=== PATIENT | female | born 1965 | race Caucasian/White ===

== ENCOUNTER 2016-11-28 14:17 | Emergency (ER) | payer MEDICAID ==
[~2016-11-28] VITALS: Ht 160 cm; Wt 60.0 kg
[~2016-11-28 14:17] MED LIST: OXCA600T5 PO
[2016-11-28 15:25] LABS: BASOPHILS % 0.4 % (0.0-2.0); EOSINOPHILS % 1.3 % (0.0-5.0); HEMATOCRIT. 32.5 % (36.0-48.0); HEMOGLOBIN. 10.8 g/dL (12.0-16.0); LYMPHOCYTES % 27.7 % (20.0-50.0); MEAN PLATELET VOLUME 8.6 fl (7.4-10.4); MONOCYTES % 7.2 % (2.0-8.0); NEUTROPHILS % 63.4 % (40.0-76.0); PLATELET 322 x1000/uL (130-400); RED BLOOD CELL COUNT 3.49 mill/uL (4.2-5.4); RED CELL DISTRIBUTION WIDTH 16.9 % (11.6-14.6)
[2016-11-28 15:29] LABS: CHLORIDE 106 mEq/L (98-107)
[2016-11-28 15:33] LABS: CARBON DIOXIDE 27 mEq/L (21-32)
[2016-11-28 16:17] LABS: *AMPHETAMINES SCREEN URINE NEGATIVE (NEGATIVE); *BARBITURATES SCREEN URINE NEGATIVE (NEGATIVE); *BENZODIAZEPINES SCREEN URINE NEGATIVE (NEGATIVE); *COCAINE SCREEN URINE NEGATIVE (NEGATIVE); METHADONE URINE SCREEN NEGATIVE (NEGATIVE); OPIATES URINE SCREEN NEGATIVE (NEGATIVE); PHENCYCLIDINE URINE SCREEN NEGATIVE (NEGATIVE)
[2016-11-28 16:20] LABS: CANNABINOID URINE SCREEN PRESUMTIVE POSITIVE (NEGATIVE)
[2016-11-28] MEDS ORDERED: LEVETIRACETAM 250MG TABLET PO ONE (16:45)
[2016-11-28] MEDS ORDERED: LORAZEPAM 2MG/ML CPJ ONE (16:56)
[2016-11-28] MEDS ORDERED: POTASSIUM CHLORIDE 20MEQ TABLET SR PO ONE ×2 (16:57)
[2016-11-28] MEDS ORDERED: LEVETIRACETAM 500MG PREMIX 100 ML IV ONE ×2 (17:00)
[2016-11-28 17:08] VITALS: BP 136/73
[2016-11-28] MEDS ORDERED: LORAZEPAM 2MG/ML CPJ IV ONE (17:15)
== END 2016-11-28 18:55 | disposition home or self-care (01) ==
LOC: ER 14:27
DX: G40.909 Epilepsy, unspecified, not intractable, without status epilepticus (principal); F32.9 Major depressive disorder, single episode, unspecified; I10 Essential (primary) hypertension; I25.2 Old myocardial infarction; F12.10 Cannabis abuse, uncomplicated; Z86.73 Personal history of transient ischemic attack (TIA), and cerebral infarction without residual deficits
CPT/HCPCS: 36415; 80053; 80305; 85025; 96365; 96375; 99284; J1953; J2060; Z7610

== ENCOUNTER 2017-02-27 08:05 | Emergency (ER) | payer MEDICAID ==
[~2017-02-27] VITALS: Ht 154.9 cm; Wt 74.0 kg
[2017-02-27] MEDS ORDERED: KETOROLAC 30MG/ML VIAL IM ONE (11:00)
[2017-02-27 12:18] VITALS: BP 130/74
== END 2017-02-27 12:20 | disposition home or self-care (01) ==
LOC: ER 08:05
DX: B02.9 Zoster without complications (principal); I10 Essential (primary) hypertension; G40.909 Epilepsy, unspecified, not intractable, without status epilepticus; Z86.73 Personal history of transient ischemic attack (TIA), and cerebral infarction without residual deficits; I25.2 Old myocardial infarction; Z86.59 Personal history of other mental and behavioral disorders
CPT/HCPCS: 96372; 99283; J1885; Z7610

== ENCOUNTER 2021-01-07 09:45 | Emergency (ER) | payer MEDICAID ==
[~2021-01-07] VITALS: Ht 154.9 cm; Wt 74.7 kg
[~2021-01-07 09:45] MED LIST changes: +DICL50TA9 MT
[2021-01-07] MEDS ORDERED: IBUPROFEN 800MG TABLET PO ONE (10:30)
[2021-01-07 10:44] VITALS: BP 173/109
[2021-01-07] MEDS ORDERED: IBUP-2029 MT (11:06)
[2021-01-07] MEDS ORDERED: OFLO5DRO4 EACH EAR (11:06)
== END 2021-01-07 11:24 | disposition home or self-care (01) ==
LOC: ER 09:45
DX: H60.93 Unspecified otitis externa, bilateral (principal); H61.23 Impacted cerumen, bilateral; G40.909 Epilepsy, unspecified, not intractable, without status epilepticus; I10 Essential (primary) hypertension; F12.90 Cannabis use, unspecified, uncomplicated; Z86.73 Personal history of transient ischemic attack (TIA), and cerebral infarction without residual deficits; Z79.899 Other long term (current) drug therapy
CPT/HCPCS: 99283

== ENCOUNTER 2021-04-10 13:05 | Emergency (ER) | payer MEDICAID ==
[~2021-04-10] VITALS: Ht 160 cm; Wt 77.5 kg
[~2021-04-10 13:05] MED LIST changes: +IBUP-2029 MT; +OFLO5DRO4 EACH EAR
[2021-04-10] MEDS ORDERED: MECLIZINE 25MG TABLET PO ONE (13:30)
[2021-04-10] MEDS ORDERED: SODIUM CHLORIDE 0.9% 1,000 ML IV ONE (13:30)
[2021-04-10 14:00] LABS: HEMATOCRIT. 37.4 % (36.0-48.0); HEMOGLOBIN. 12.8 g/dL (12.0-16.0); MEAN CORPUSCULAR HEMOGLOBIN 32.6 pg (28.0-32.0); RED BLOOD CELL COUNT 3.93 mill/uL (4.2-5.4); RED CELL DISTRIBUTION WIDTH 13.9 % (11.6-14.6)
[2021-04-10 14:01] LABS: BASOPHILS % 0.3 % (0.0-2.0); EOSINOPHILS % 1.5 % (0.0-5.0); LYMPHOCYTES % 35.8 % (20.0-50.0); MEAN PLATELET VOLUME 8.9 fl (7.4-10.4); NEUTROPHILS % 56.4 % (40.0-76.0); PLATELET 285 x1000/uL (130-400)
[2021-04-10 14:09] LABS: CHLORIDE 106 mEq/L (98-107)
[2021-04-10 14:13] LABS: ETHANOL BLOOD < 10 mg/dL
[2021-04-10] MEDS ORDERED: POTASSIUM CHLORIDE 20MEQ TABLET SR PO STA (14:19)
[2021-04-10 17:27] LABS: CLARITY URINE CLOUDY (CLEAR); COLOR URINE YELLOW (YELLOW); KETONES URINE NEGATIVE (NEGATIVE); LEUKOCYTE ESTERASE URINE 1+ (NEGATIVE); NITRITE URINE NEGATIVE (NEGATIVE); OCCULT BLOOD URINE NEGATIVE (NEGATIVE); PH URINE 5.5 (4.5-8.0); PROTEIN URINE NEGATIVE (NEGATIVE); SPECIFIC GRAVITY URINE 1.027 (1.005-1.030); UROBILINOGEN URINE 0.2 E.U./dL (0.2-1.0)
[2021-04-10 17:39] LABS: *AMPHETAMINES SCREEN URINE NEGATIVE (NEGATIVE); *BARBITURATES SCREEN URINE NEGATIVE (NEGATIVE); *BENZODIAZEPINES SCREEN URINE NEGATIVE (NEGATIVE)
[2021-04-10 17:40] LABS: *COCAINE SCREEN URINE NEGATIVE (NEGATIVE); CANNABINOID URINE SCREEN PRESUMTIVE POSITIVE (NEGATIVE); METHADONE URINE SCREEN NEGATIVE (NEGATIVE); OPIATES URINE SCREEN NEGATIVE (NEGATIVE); PHENCYCLIDINE URINE SCREEN NEGATIVE (NEGATIVE)
[2021-04-10 17:46] VITALS: BP 143/85
== END 2021-04-10 17:57 | disposition left against medical advice (07) ==
LOC: ER 13:16
DX: R42 Dizziness and giddiness (principal); F12.10 Cannabis abuse, uncomplicated; I10 Essential (primary) hypertension; Z86.59 Personal history of other mental and behavioral disorders; Z90.49 Acquired absence of other specified parts of digestive tract; Z98.51 Tubal ligation status
CPT/HCPCS: 36415; 70450; 80053; 80305; 80307; 80320; 80329; 81003; 84484; 85025; 96360; 99285; J7030; J8597; G0480

== ENCOUNTER 2021-12-30 09:48 | Emergency (ER) | payer MEDICAID ==
[~2021-12-30] VITALS: Ht 165.1 cm; Wt 82.0 kg
[2021-12-30] MEDS ORDERED: BACLOFEN 10MG TABLET PO ONE (10:30)
[2021-12-30] MEDS ORDERED: ACETAMINOPHEN 325MG TABLET PO ONE (10:30)
[2021-12-30] MEDS: LIDOCAINE 5% PATCH TOP SCH ×2 (10:37→10:38)
[2021-12-30] MEDS ORDERED: LIDO700A15 TP (12:34)
[2021-12-30] MEDS ORDERED: ACET-2708 MT (12:34)
[2021-12-30] MEDS ORDERED: BACL-141 MT (12:34)
[2021-12-30 13:07] VITALS: BP 135/87
== END 2021-12-30 13:08 | disposition home or self-care (01) ==
LOC: ER 09:59
DX: M54.59 Other low back pain (principal); R07.81 Pleurodynia; M48.07 Spinal stenosis, lumbosacral region; M47.817 Spondylosis without myelopathy or radiculopathy, lumbosacral region; M43.17 Spondylolisthesis, lumbosacral region; G40.909 Epilepsy, unspecified, not intractable, without status epilepticus; Z91.81 History of falling
CPT/HCPCS: 71250; 72131; 99284

== ENCOUNTER 2022-06-08 15:56 | Emergency (ER) | payer MEDICAID ==
[~2022-06-08] VITALS: Ht 165.1 cm; Wt 68.0 kg
[~2022-06-08 15:56] MED LIST changes: +ACET-2708 MT; +BACL-141 MT; +LIDO700A15 TP
[2022-06-08 16:42] LABS: BASOPHILS % 0.2 % (0.0-2.0); EOSINOPHILS % 0.3 % (0.0-5.0); HEMATOCRIT. 41.2 % (36.0-48.0); LYMPHOCYTES % 19.4 % (20.0-50.0); MEAN CORPUSCULAR HEMOGLOBIN 32.6 pg (28.0-32.0); MEAN CORPUSCULAR VOLUME 95.7 fL (81.0-99.0); MEAN PLATELET VOLUME 8.8 fl (7.4-10.4); MONOCYTES % 4.2 % (2.0-8.0); NEUTROPHILS % 75.9 % (40.0-76.0); PLATELET 305 x1000/uL (130-400); RED BLOOD CELL COUNT 4.31 mill/uL (4.2-5.4); RED CELL DISTRIBUTION WIDTH 14.2 % (11.6-14.6)
[2022-06-08 16:49] LABS: CHLORIDE 107 mEq/L (98-107)
[2022-06-08] MEDS ORDERED: PHENYTOIN SODIUM 100MG/2ML VIAL IV ONE (17:15)
[2022-06-08] MEDS ORDERED: LEVETIRACETAM 1000MG PREMIX 100 ML IV ONE (17:30)
[2022-06-08 19:00] VITALS: BP 152/80
== END 2022-06-08 19:04 | disposition home or self-care (01) ==
LOC: ER 15:56
DX: R56.9 Unspecified convulsions (principal); I10 Essential (primary) hypertension; Z90.49 Acquired absence of other specified parts of digestive tract
CPT/HCPCS: 36415; 80053; 80185; 85025; 96365; 99291; J1953; J1165

== ENCOUNTER 2022-12-16 08:00 | Emergency (ER) | payer MEDICAID ==
[~2022-12-16] VITALS: Ht 154.9 cm; Wt 74.0 kg
[2022-12-16 08:08] VITALS: BP 147/94; TEMP 98.3; O2SAT 99
[2022-12-16 08:10] VITALS: PULSE 77; RESP 18
== END 2022-12-16 10:44 | disposition home or self-care (01) ==
LOC: ER 08:00
DX: H61.23 Impacted cerumen, bilateral (principal); J45.909 Unspecified asthma, uncomplicated; I10 Essential (primary) hypertension; Z86.59 Personal history of other mental and behavioral disorders
CPT/HCPCS: 69210; 99282

== ENCOUNTER 2024-01-01 07:39 | Emergency (ER) | payer MEDICAID, OTHER ==
[~2024-01-01] VITALS: Ht 154.9 cm; Wt 73.0 kg
[2024-01-01 07:42] VITALS: O2SAT 99
[2024-01-01] MEDS: DIAZEPAM 5 MG TABLET PO ONE (08:33)
[2024-01-01] MEDS ORDERED: DIAZ5TAB MT (09:59)
[2024-01-01] MEDS ORDERED: CELE100C MT (09:59)
[2024-01-01 10:22] VITALS: BP 150/83; PULSE 65; RESP 16; TEMP 98.2
[2024-01-01] MEDS: KETOROLAC 30MG/ML VIAL IM ONE (10:22)
== END 2024-01-01 10:49 | disposition home or self-care (01) ==
LOC: ER 07:54
DX: R52 Pain, unspecified (principal); J45.909 Unspecified asthma, uncomplicated; I10 Essential (primary) hypertension; G40.909 Epilepsy, unspecified, not intractable, without status epilepticus
CPT/HCPCS: 96372; 99283; J1885

== ENCOUNTER 2024-04-17 09:30 | Emergency (ER) | payer MEDICAID, OTHER ==
[~2024-04-17] VITALS: Ht 154.9 cm; Wt 66.0 kg
[~2024-04-17 09:30] MED LIST changes: +CELE100C MT; +DIAZ5TAB MT
[2024-04-17 09:38] VITALS: TEMP 98.3; O2SAT 97
[2024-04-17 10:14] LABS: BASOPHILS % 0.5 % (0.0-2.0); EOSINOPHILS % 0.5 % (0.0-5.0); HEMATOCRIT. 39.7 % (36.0-48.0); HEMOGLOBIN. 13.6 g/dL (12.0-16.0); LYMPHOCYTES % 42.3 % (20.0-50.0); MEAN CORPUSCULAR HEMOGLOBIN 33.3 pg (28.0-32.0); MEAN CORPUSCULAR HGB CONC 34.2 g/dL (31.0-37.0); MEAN CORPUSCULAR VOLUME 97.4 fL (81.0-99.0); MEAN PLATELET VOLUME 8.7 fl (7.4-10.4); MONOCYTES % 11.7 % (2.0-8.0); PLATELET 244 x1000/uL (130-400); RED BLOOD CELL COUNT 4.08 mill/uL (4.2-5.4); RED CELL DISTRIBUTION WIDTH 14.6 % (11.6-14.6); WHITE BLOOD COUNT 4.7 x1000/uL (4.5-11.0)
[2024-04-17 10:24] LABS: POTASSIUM 3.3 mEq/L (3.5-5.1)
[2024-04-17 10:25] LABS: CALCIUM 9.7 mg/dL (8.7-10.4)
[2024-04-17 11:42] LABS: ALANINE AMINOTRANSFERASE 38 IU/L (10-49)
[2024-04-17 11:43] LABS: ALBUMIN 4.7 g/dL (3.2-4.8); ASPARTATE AMINOTRANSFERASE 36 IU/L (<34); BILIRUBIN DIRECT 0.1 mg/dL (<=3.0); BILIRUBIN TOTAL 0.3 mg/dL (0.1-1.0); PROTEIN TOTAL 8.2 g/dL (6.0-8.3)
[2024-04-17] MEDS: ACETAMINOPHEN 325MG TABLET PO ONE (13:01)
[2024-04-17] MEDS: ONDANSETRON 4MG ODT PO ONE (13:02)
[2024-04-17 14:12] LABS: CLARITY URINE CLOUDY (CLEAR); COLOR URINE DARK YELLOW (YELLOW); GLUCOSE URINE NEGATIVE (NEGATIVE); KETONES URINE 2+ (NEGATIVE); LEUKOCYTE ESTERASE URINE 1+ (NEGATIVE); NITRITE URINE POSITIVE (NEGATIVE); OCCULT BLOOD URINE 2+ (NEGATIVE); PH URINE 5.5 (4.5-8.0); PROTEIN URINE 1+ (NEGATIVE)
[2024-04-17] MEDS ORDERED: ONDA-239 PO (14:34)
[2024-04-17] MEDS ORDERED: CEFP200T13 MT (14:34)
[2024-04-17] MEDS ORDERED: KETO10TA2 MT (14:34)
[2024-04-17 14:37] VITALS: BP 126/87; PULSE 75; RESP 16; O2SAT 98
[2024-04-17 14:43] LABS: BACTERIA URINE 4+; SQUAMOUS EPITHELIAL CELL URINE 1+ /lpf (RARE/1+); YEAST URINE NONE SEEN
== END 2024-04-17 14:50 | disposition home or self-care (01) ==
LOC: ER 09:40
DX: N39.0 Urinary tract infection, site not specified (principal); R51.9 Headache, unspecified; R10.9 Unspecified abdominal pain; R11.2 Nausea with vomiting, unspecified; I10 Essential (primary) hypertension; E11.9 Type 2 diabetes mellitus without complications; Z86.59 Personal history of other mental and behavioral disorders; Z79.899 Other long term (current) drug therapy
CPT/HCPCS: 99284; 70450; 80076; 80048; 81003; 83690; 85025; 36415; 74176; Q0162

== ENCOUNTER 2024-04-18 10:20 | Emergency (ER) | payer OTHER ==
[~2024-04-18] VITALS: Ht 152.4 cm; Wt 59.0 kg
[~2024-04-18 10:20] MED LIST changes: +CEFP200T13 MT; +KETO10TA2 MT; +ONDA-239 PO
[2024-04-18 10:25] VITALS: O2SAT 98
[2024-04-18] MEDS: LEVETIRACETAM 1000MG PREMIX 100 ML IV ONE (10:59)
[2024-04-18] MEDS: ONDANSETRON HCL 4MG/2ML INJ IV STA (10:59)
[2024-04-18] MEDS: SODIUM CHLORIDE 0.9% 1,000 ML IV ONE (10:59)
[2024-04-18 11:39] LABS: BASOPHILS % 0.4 % (0.0-2.0); EOSINOPHILS % 0.4 % (0.0-5.0); HEMATOCRIT. 37.9 % (36.0-48.0); HEMOGLOBIN. 12.5 g/dL (12.0-16.0); LYMPHOCYTES % 31.7 % (20.0-50.0); MEAN CORPUSCULAR HEMOGLOBIN 32.3 pg (28.0-32.0); MEAN CORPUSCULAR HGB CONC 33.1 g/dL (31.0-37.0); MEAN CORPUSCULAR VOLUME 97.5 fL (81.0-99.0); MEAN PLATELET VOLUME 8.9 fl (7.4-10.4); MONOCYTES % 8.7 % (2.0-8.0); NEUTROPHILS % 58.8 % (40.0-76.0); PLATELET 228 x1000/uL (130-400); RED BLOOD CELL COUNT 3.89 mill/uL (4.2-5.4); RED CELL DISTRIBUTION WIDTH 14.2 % (11.6-14.6); WHITE BLOOD COUNT 6.8 x1000/uL (4.5-11.0)
[2024-04-18 11:47] LABS: CHLORIDE 105 mEq/L (98-107); POTASSIUM 3.9 mEq/L (3.5-5.1); SODIUM 139 mEq/L (136-145)
[2024-04-18 11:48] LABS: CALCIUM 9.1 mg/dL (8.7-10.4); CARBON DIOXIDE 24 mEq/L (21-32)
[2024-04-18 11:53] LABS: GLUCOSE 94 mg/dL (70-105); UREA NITROGEN BLOOD 26 mg/dL (9-23)
[2024-04-18 12:17] LABS: ETHANOL BLOOD < 10 mg/dL (<10)
[2024-04-18 14:50] VITALS: BP 127/65; PULSE 75; RESP 18; TEMP 36.94740; O2SAT 98
== END 2024-04-18 15:39 | disposition left against medical advice (07) ==
LOC: ER 10:20 → EDBEDREQTM 13:27 → EDBEDREQ 13:27 → ER 15:39
DX: R56.9 Unspecified convulsions (principal); I10 Essential (primary) hypertension; J45.909 Unspecified asthma, uncomplicated; Z79.899 Other long term (current) drug therapy
CPT/HCPCS: 80048; 80320; 85025; 36415; 96365; 96375; 99284; J1953; J2405; J7030; Z7610 ×3; G0480